=== PATIENT | male | born 1960 | race Caucasian/White ===

== ENCOUNTER 2017-05-10 06:37 | Day surgery (SDC) | payer BC ==
[~2017-05-10] VITALS: Ht 195.6 cm; Wt 131.1 kg
--- NOTE | ~2017-05-10 | HP ---
PATIENT: ANGELICA RODRIGUEZ MEDICAL RECORD: [id number] ACCOUNT: [id number] LOCATION:NILE : 60 ADMISSION DATE: 05/10/17 HISTORY AND PHYSICAL EXAMINATION HISTORY OF PRESENT ILLNESS: Mr. Rodriguez is a 56-year-old male with a rapidly enlarging dorsal tongue lesion. He is being admitted for wide local excision of tongue lesion with primary repair. PAST MEDICAL HISTORY: Includes hypertension and reflux. PAST SURGICAL HISTORY: Includes thyroidectomy. CURRENT MEDICATIONS: Metoprolol, lisinopril, triamterene and hydrochlorothiazide, clonidine, and levothyroxine. ALLERGIES: PENICILLIN. PHYSICAL EXAMINATION: GENERAL: He is healthy-appearing, developmentally normal. FACE: Normal, symmetric, no lesions. EYES: Sclerae and conjunctivae are normal. EARS: Canals and TMs are normal. NOSE: No masses, polyps, or drainage. ORAL CAVITY AND OROPHARYNX: He has a lesion on the dorsal tongue, right at the midline anteriorly, the base is 1.5 cm and some of it is larger than that, is irregular vascular. Rest of the oral cavity and oropharynx is normal. Tongue mobility is normal. NECK: No masses, no adenopathy. IMPRESSION: Vascular lesion on dorsum of the tongue, it is bleeding some spontaneously. We are going to excise this and repair it primarily. TRANSINT:[id number] Voice Confirmation ID: [id number] DOCUMENT ID: [id number] NATALIA HENDERSON MD at 1313 CC: [id number] DICTATION DATE: 05/06/17 1501 HOSPITAL SUPERINTENDENT: 05/06/17 1607 [facility] 05/10/17 [place] [id number] [place] [id number]
--- NOTE | ~2017-05-10 | OP ---
PATIENT NAME: ANGELICA RODRIGUEZ MEDICAL RECORD: [id number] :60 LOCATION:D.OPS ADMISSION DATE: SURGEON: HAIM PARK MD DATE OF OPERATION: 05/10/2017 PREOPERATIVE DIAGNOSIS: Dorsal tongue lesion. POSTOPERATIVE DIAGNOSIS: Dorsal tongue lesion. PROCEDURE: Wide local excision of dorsal tongue lesion. SURGEON: Haim Park MD ANESTHESIA: General orotracheal. BLOOD LOSS: 1 cc. SPECIMENS: Dorsal tongue lesion. Frozen section diagnosis benign. COMPLICATIONS: None. DISPOSITION: Recovery stable. PROCEDURE NOTE: He was brought to the operating room and placed in supine position, sedated and intubated by anesthesia. Oral cavity was examined. The tongue was grasped with a sponge and extended to expose the dorsal tongue lesion. The base was injected with 0.5 cc of 1% lidocaine 1:100,000 epinephrine. After giving that some time, an excision was made with a spatula tip cautery on a setting of 15 making an elliptical incision in the dorsal tongue near the midline and just to the right of midline with a cuff of normal dorsal tongue mucosa around it. This was taken down full thickness through the mucosa and somewhat into the muscle just beneath the lesion using cautery to control the bleeding. The specimen was sent for path. 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 No evidence of malignancy. The wound was carefully and completely cleaned up and making sure there was no bleeding at all. The wound was closed with multiple interrupted 2-0 chromic sutures. He was awakened, extubated, and transported to recovery in good condition. No complications. TRANSINT:[id number] Voice Confirmation ID: [id number] DOCUMENT ID: [id number] HAIM PARK MD at 1313 CC: [id number] DICTATION DATE: 05/10/17 1117 SKIN PASS OPERATOR: 05/10/17 1430 [facility] [place] 05/10/17 [place] [id number]
[~2017-05-10 06:37] MED LIST: CATAPRES0.1 MG PO; KRILL OIL; LAMISIL250 MG PO; MAXZIDE 75/501 TAB; PRILOSEC20 MG PO; PRINIVIL20 MG PO; SYNTHROID125 MCG PO; TOPROL XL100 MG PO; TRIPLE ANTIB28.35 GM TP; TYLENOL W/CODEI1 TAB PO
[2017-05-10 07:18] LABS: HEMATOCRIT 48.5 % (42.0-54.0); HEMOGLOBIN 16.9 g/dL (13.5-17.5); MCH 32.1 pg (26.0-34.0); MCHC 34.8 g/dL (31.0-37.0); MEAN PLATELET VOLUME 9.9 fL (7.4-10.4); RBC 5.27 10x6/uL (4.20-6.10); RDW 12.8 % (11.5-14.5); WBC 8.6 10x3/uL (4.8-10.8)
[2017-05-10 07:31] LABS: ANION GAP 12.2 mmol/L (8-16); CALCIUM 9.3 mg/dL (8.5-10.1); CARBON DIOXIDE 28.5 mmol/L (21.0-32.0); CREATININE - SERUM 1.2 mg/dL (0.6-1.3); POTASSIUM - SERUM 3.7 mmol/L (3.5-5.1)
[2017-05-10 08:42] VITALS: BP 143/76; Ht 195.6 cm; Wt 131.1 kg
== END 2017-05-10 12:50 | disposition home or self-care (01) ==
LOC: D.OPS 06:37 → D.PAN 10:45 → D.OPS 10:45
PROVIDERS: Anesthesiology
DX: K14.8 Other diseases of tongue (principal); I10 Essential (primary) hypertension; K21.9 Gastro-esophageal reflux disease without esophagitis; Z01.812 Encounter for preprocedural laboratory examination